=== PATIENT | female | born 1940 | race Caucasian/White ===

== ENCOUNTER 2021-06-26 15:50 | Emergency (ER) | payer OTHER ==
[~2021-06-26] VITALS: Ht 154.9 cm; Wt 58.5 kg
[2021-06-26] MEDS ORDERED: LEVOTHYROXINE25 MCG (16:11)
[2021-06-26] MEDS ORDERED: DILTIAZEM 24HR180 MG (16:11)
[2021-06-26] MEDS ORDERED: IRBESARTAN150 MG (16:11)
[2021-06-26] MEDS ORDERED: ATORVASTATIN CA10 MG (16:12)
[2021-06-26] MEDS ORDERED: DOXYCYCLINE HYC20 MG (16:12)
[2021-06-26] MEDS ORDERED: CHILDREN'S ASPI81 MG (16:12)
== END 2021-06-26 17:16 | disposition home or self-care (01) ==
LOC: ER 15:50
DX: M94.0 Chondrocostal junction syndrome [Tietze] (principal); Z91.013 Allergy to seafood

== ENCOUNTER 2021-08-14 09:40 | Emergency (ER) | payer OTHER ==
[~2021-08-14] VITALS: Ht 154.9 cm; Wt 57.6 kg
[~2021-08-14 09:40] MED LIST: ATORVASTATIN CA10 MG; CHILDREN'S ASPI81 MG; DILTIAZEM 24HR180 MG; DOXYCYCLINE HYC20 MG; IRBESARTAN150 MG; LEVOTHYROXINE25 MCG
[2021-08-14] MEDS ORDERED: SOLIQUA 100 UNIT3 ML SQ (09:50)
== END 2021-08-14 15:51 ==
LOC: ER 09:40
DX: R00.2 Palpitations (principal)

== ENCOUNTER 2021-09-16 09:11 | Emergency (ER) | payer OTHER ==
[~2021-09-16] VITALS: Ht 154.9 cm; Wt 57.6 kg
[~2021-09-16 09:11] MED LIST changes: +SOLIQUA 100 UNIT3 ML SQ
== END 2021-09-16 11:56 | disposition home or self-care (01) ==
LOC: ER 09:11
DX: B34.9 Viral infection, unspecified (principal); Z20.822 Contact with and (suspected) exposure to COVID-19; E11.9 Type 2 diabetes mellitus without complications; Z79.4 Long term (current) use of insulin; I10 Essential (primary) hypertension; Z88.8 Allergy status to other drugs, medicaments and biological substances; Z91.013 Allergy to seafood

== ENCOUNTER 2022-11-01 11:07 | Emergency (ER) | payer OTHER ==
[~2022-11-01] VITALS: Ht 152.4 cm; Wt 50.3 kg
== END 2022-11-01 15:41 | disposition home or self-care (01) ==
LOC: ER 11:07
DX: R00.2 Palpitations (principal); E11.9 Type 2 diabetes mellitus without complications; Z79.4 Long term (current) use of insulin; Z88.8 Allergy status to other drugs, medicaments and biological substances; Z91.013 Allergy to seafood